=== PATIENT | male | born 2000 | race Caucasian/White ===

== ENCOUNTER 2022-07-05 18:42 | Emergency (ER) | payer OTHER ==
[~2022-07-05] VITALS: Ht 188 cm; Wt 69.4 kg
== END 2022-07-05 21:54 | disposition home or self-care (01) ==
LOC: ER 18:42 → EMR PED 18:47
DX: S69.92XA Unspecified injury of left wrist, hand and finger(s), initial encounter (principal); X58.XXXA Exposure to other specified factors, initial encounter; Y93.9 Activity, unspecified; Y92.9 Unspecified place or not applicable

== ENCOUNTER 2024-04-29 14:38 | Emergency (ER) | payer OTHER ==
[~2024-04-29] VITALS: Ht 167.6 cm; Wt 68.0 kg
[2024-04-29] MEDS ORDERED: KETOROLAC TROMETHAMINE 30 MG VIAL IM STA (17:44)
== END 2024-04-29 19:25 | disposition home or self-care (01) ==
LOC: ER 14:40
DX: R07.89 Other chest pain (principal)